=== PATIENT | male | born 1965 | race Caucasian/White ===

== ENCOUNTER 2020-10-31 11:07 | Emergency (ER) | payer BC, MEDICAID, OTHER ==
--- NOTE | 2020-10-31 11:37 | EDM.PDOC ---
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 Has a history fo GERD and did not take his medication for a day or so. He states he felt fine this morning. started working at 8 am. at about 10:30 he had sudden onset of squeezing in his chest substernal with radiation to his throat. NO diaphoresis, no nausea. No cardiac history but gi and gerd history. has not been ill. Pain lasted about 30 minutes and is gone at arrival. possibly had covid, recovered remote past, no vaccinations Onset: Today, Sudden Onset Date: 10/31/20 Onset Time: 10:30 Duration: Minutes: (30), Resolved Prior to Arrival Location: Reports: Chest Quality: Reports: Pressure Severity: Moderate Middle Chest Pain Score (Numeric/FACES): 0 - Related Data Allergies Allergy/AdvReac Type Severity Reaction Status Date / Time codeine Allergy Cannot Verified 10/31/20 11:39 Remember hydrocodone Allergy Cannot Verified 10/31/20 11:39 Remember Sulfa (Sulfonamide Allergy Cannot Verified 10/31/20 11:39 Antibiotics) Remember tramadol Allergy Cannot Verified 10/31/20 11:39 Remember Home Meds: Home Meds . [No Known Home Meds] 02/06/17 [History] Past Medical History HEENT History: Reports: Impaired Vision Respiratory History: Reports: COPD Gastrointestinal History: Reports: GERD - Past Surgical History GI Surgical History: Reports: Hernia Repair/Other Social & Family History - Tobacco Use Tobacco Use Status *Q: Former Tobacco User - Alcohol Use Alcohol Use History: No Alcohol Use in Last Twelve Months: No Alcohol Use Comment: past use - Recreational Drug Use Recreational Drug Use: No Drug Use in Last 12 Months: No ED ROS GENERAL - Review of Systems Review Of Systems: See Below Constitutional: Reports: No Symptoms. Denies: Fever, Chills HEENT: Reports: No Symptoms. Denies: Dental Pain, Sinus Problem, Throat Pain Respiratory: Reports: No Symptoms. Denies: Shortness of Breath, Cough Cardiovascular: Reports: Chest Pain. Denies: Dyspnea on Exertion, Lightheadedness, Palpitations Endocrine: Reports: No Symptoms GI/Abdominal: Reports: No Symptoms. Denies: Abdominal Pain, Decreased Appetite, Nausea, Vomiting Musculoskeletal: Reports: No Symptoms Skin: Reports: No Symptoms Neurological: Reports: No Symptoms. Denies: Confusion, Dizziness, Headache Psychiatric: Reports: No Symptoms Hematologic/Lymphatic: Reports: No Symptoms ED EXAM, GENERAL - Physical Exam Exam: See Below Exam Limited By: No Limitations General Appearance: Alert, WD/WN, No Apparent Distress Eye Exam: Bilateral Eye: EOMI, Normal Inspection, PERRL Ears: Normal External Exam Nose: Normal Inspection, Normal Mucosa, No Blood Throat/Mouth: Normal Lips, Normal Teeth, Normal Voice Head: Atraumatic Neck: Normal Inspection, Supple, Non-Tender Respiratory/Chest: No Respiratory Distress, Lungs Clear, Normal Breath Sounds, No Accessory Muscle Use, Chest Non-Tender. No: Respiratory Distress, Crackles, Rales Cardiovascular: Normal Peripheral Pulses, Regular Rate, Rhythm, No Edema, No Murmur GI/Abdominal: Normal Bowel Sounds, Soft, Non-Tender, Other (obese) Extremities: Normal Inspection, Normal Range of Motion, No Pedal Edema Neurological: Alert, Oriented, CN II-XII Intact, Normal Cognition, Normal Gait Psychiatric: Normal Affect #1 Interpretation EKG Date: 10/31/20 Time: 11:13 Rhythm: NSR Harmony: Normal P-Wave: Present QRS: Normal ST-T: Normal QT: Normal Comparison: NA - No Prior EKG Course - Vital Signs Last Recorded V/S: Last Vital Signs Temp 36.4 C 10/31/20 11:21 Pulse 72 10/31/20 11:32 Resp 16 10/31/20 11:32 BP 118/79 10/31/20 11:53 Pulse Ox 70 L 10/31/20 11:53 - Orders/Labs/Meds Orders: Active Orders 24 hr Category Date Time Status EKG Documentation Completion [RC] ASDIRECTED Care 10/31/20 11:16 Active Chest 2V [CR] Stat Exams 10/31/20 11:26 Ordered EKG 12 Lead [EK] Stat Ther 10/31/20 11:16 Ordered Labs: Laboratory Tests 10/31/20 10/31/20 Range/Units 11:23 11:23 WBC 6.0 (4.0-10.2) K/uL RBC 4.79 (4.33-5.41) M/uL Hgb 12.2 L (13.1-16.8) g/dL Hct 38.8 L (39.0-49.0) % MCV 81.0 L (84.0-98.0) fL MCH 25.5 L (28.2-33.3) pg MCHC 31.4 L (31.7-36.0) g/dL RDW 14.2 H (11.2-14.1) % Plt Count 176 (150-350) K/uL Neut % (Auto) 66.8 (45.0-80.0) % Lymph % (Auto) 23.8 (10.0-50.0) % Logan % (Auto) 7.3 (2.0-14.0) % Eos % (Auto) 1.8 (0.0-5.0) % Baso % (Auto) 0.3 (0.0-2.0) % Neut # (Auto) 4.00 (1.40-7.00) K/uL Lymph # (Auto) 1.43 (0.50-3.50) K/uL Logan # (Auto) 0.44 (0.00-1.00) K/uL Eos # (Auto) 0.11 (0.00-0.50) K/uL Baso # (Auto) 0.02 (0.00-0.20) K/uL Sodium 143 (136-145) mmol/L Potassium 4.0 (3.5-5.1) mmol/L Chloride 106 (98-107) mmol/L Carbon Dioxide 27.5 (21.0-32.0) mmol/L Anion Gap 9.5 (7-15) meq/L BUN 14 (7-18) mg/dL Creatinine 1.25 H (0.51-1.17) mg/dL Est Cr Clr Drug Dosing 78.55 mL/min Estimated GFR (MDRD) > 60 mL/min Glucose 99 (70-99) mg/dL Calcium 8.9 (8.5-10.1) mg/dL Total Bilirubin 0.7 (0.2-1.0) mg/dL AST 14 L (15-37) U/L ALT 26 (12-78) U/L Alkaline Phosphatase 82 (46-116) IU/L Troponin I High Sens < 4 (<=76) ng/L Total Protein 7.4 (6.4-8.2) g/dL Albumin 4.1 (3.4-5.0) g/dL Meds: Medications Discontinued Medications Generic Name Dose Route Start Last Admin Trade Name Amber PRN Reason Stop Dose Admin Al Hydroxide/Mg Hydroxide 30 ml 10/31/20 11:27 10/31/20 11:43 Gi Cocktail Oral Solution 30 Ml PO 10/31/20 11:28 30 ml ONETIME ONE Administration - Radiology Interpretation Free Text/Narrative:: no acute on chest x-ray, interpreted by author preliminarily - Re-Assessments/Exams Free Text/Narrative Re-Assessment/Exam: 10/31/20 11:39 patient with a history of reflux, had pain with exertion that was squeezing and substernal and resolved at arrival. check chest x-ray, ekg, labs, give gi cocktail. 10/31/20 11:59 Patient continues to be without pain. High sensitivity troponin is negative. advised to continue gerd medications. Follow up with PCP Departure - Departure Time of Disposition: 11:57 Disposition: Home, Self-Care 01 Clinical Impression: Chest pain, GERD (gastroesophageal reflux disease) Instructions: Food Choices for Gastroesophageal Reflux Disease, Adult, Nonspecific Chest Pain, Adult Forms: ED Department Discharge Additional Instructions: Testintg today is negative for heart attack, and pneumonia. You were given medication for your reflux. You should take your prescribed medications daily, limit acidic food and not eat or drink at least 2 hours prior to going to bed. Sepsis Event Note (ED) - Evaluation Sepsis Screening Result: No Definite Risk - Focused Exam Vital Signs: Vital Signs Temp Pulse Resp BP Pulse Ox 10/31/20 11:53 118/79 70 L 10/31/20 11:32 72 16 126/82 100 10/31/20 11:21 36.4 C 78 16 126/82 100 - My Orders Last 24 Hours: My Active Orders 10/31/20 11:16 EKG Documentation Completion [RC] ASDIRECTED EKG 12 Lead [EK] Stat 10/31/20 11:26 Chest 2V [CR] Stat - Assessment/Plan Last 24 Hours: My Active Orders 10/31/20 11:16 EKG Documentation Completion [RC] ASDIRECTED EKG 12 Lead [EK] Stat 10/31/20 11:26 Chest 2V [CR] Stat
[2020-10-31] MEDS: GI Cocktail Oral Solution 30 ML PO ONE (11:43)
[2020-10-31 11:49] LABS: ANION GAP 9.5 meq/L (7-15); CHLORIDE,CL 106 mmol/L (98-107); SODIUM,NA 143 mmol/L (136-145)
== END 2020-10-31 12:05 | disposition home or self-care (01) ==
LOC: LL.ED 11:07
DX: K21.9 Gastro-esophageal reflux disease without esophagitis (principal); J44.9 Chronic obstructive pulmonary disease, unspecified; Z72.0 Tobacco use; Z88.5 Allergy status to narcotic agent; Z88.2 Allergy status to sulfonamides
CPT/HCPCS: 36415; 71046; 80053; 84484; 85025; 93005; 93010; 99284; A9270; 99285-25